=== PATIENT | male | born 1940 | race Caucasian/White ===

== ENCOUNTER → 2018-12-01 | Outpatient (CLI) | payer MEDICARE, OTHER ==
--- NOTE | 2018-12-02 09:14 | XCELERA REPORT ---
[address] [address] Lower Extremity Arterial Evaluation Name: TOAN SYED Age: 78 yrs Gender: Male : 1940 Patient Status: Outpatient Patient Location: Study Date: 12/01/2018 10:24 AM Procedure: A color flow and duplex scan of the lower extremity arteries was performed bilaterally with velocity and waveform anaylsis. Ankle brachial indicies performed. Reason For Study: ULCER Ordering Physician: ADWOA FARLEY Performed By: Tori Nicole Measurements and Calculations Right Left OFFICE EXECUTIVE PSV 113.1 113.6 cm/sec Prox PFA PSV -48.8 -49.9 cm/sec Prox SFA PSV 83.4 93.3 cm/sec Mid SFA PSV -102.0 -89.4 cm/sec Dist SFA PSV -52.2 -94.3 cm/sec Prox Pop A PSV 58.1 83.5 cm/sec Dist LISA PSV 55.5 157.1 cm/sec Prox [place] LIMOUSINE PSV 62.9 cm/sec Mid [employer] LIMOUSINE PSV 23.6 cm/sec Dist [employer] LIMOUSINE PSV 61.5 19.8 cm/sec Darrell Pedis PSV 58.3 125.1 cm/sec Right Side Arterial Evaluation Normal velocity and triphasic waveforms noted from the Common Femoral artery to the infrageniculate vessels Ankle Brachial index 1.37. Left Side Arterial Evaluation Normal velocity and triphasic waveforms noted from the Common Femoral artery to the Femoral, Biphasic from the Popliteal to infrageniculate vessels Velocity normal in Popliteal, and Anterior Tibial, diminished in Posterior Tibial. Ankle Brachial index 1.37. Interpretation Summary No hemodynamically significant lesions in the right lower extremity only, on duplex imaging, at rest. Mild hemodynamically significant lesions in the left lower extremity only, on duplex imaging, at rest. Indication of early significant disease in the Popliteal and Posterior Tibial on the left. NASREEN normal to borderline excessive on left. : ADWOA FARLEY > Jayce Rojo
== END ==
LOC: SP 09:56
PROVIDERS: ATTEND Preventive Medicine Undersea and Hyperbaric Medicine
DX: L97.522 Non-pressure chronic ulcer of other part of left foot with fat layer exposed (principal)
CPT/HCPCS: 93925

== ENCOUNTER → 2018-12-03 | Outpatient (CLI) | payer MEDICARE, OTHER ==
--- NOTE | 2018-12-03 12:41 | RADIOLOGY REPORT (SQ) ---
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 NUMBER OF VIEWS: Three views. TECHNIQUE: AP, lateral and oblique radiographic images acquired of the left foot. LIMITATIONS: None. FINDINGS: MINERALIZATION: Normal. BONES: No acute fracture dislocation. No osteomyelitis. JOINTS: No effusions. SOFT TISSUES: No soft tissue swelling. No foreign body. OTHER: No other significant finding. IMPRESSION: No evidence of osteomyelitis. No acute osseous abnormality. TECHNICAL DOCUMENTATION: JOB ID: [id number] [employer]- All Rights Reserved Reading location - IP/workstation name: [email or web address]
== END ==
LOC: RAD 10:50
PROVIDERS: ATTEND Preventive Medicine Undersea and Hyperbaric Medicine
DX: E11.621 Type 2 diabetes mellitus with foot ulcer (principal); L97.522 Non-pressure chronic ulcer of other part of left foot with fat layer exposed

== ENCOUNTER → 2019-03-15 | Outpatient (CLI) | payer MEDICARE, OTHER ==
--- NOTE | 2019-03-15 16:35 | RADIOLOGY REPORT (SQ) ---
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 NUMBER OF VIEWS: Three views. TECHNIQUE: AP, lateral and oblique radiographic images acquired of the left foot. LIMITATIONS: None. FINDINGS: MINERALIZATION: Normal. 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 No erosive changes. No findings suspicious for osteomyeli tis. JOINTS: No effusions. SOFT TISSUES: No soft tissue swelling. No foreign body. OTHER: Hardware and ankle. IMPRESSION: No changes to suggest osteomyelitis. TECHNICAL DOCUMENTATION: JOB ID: [id number] [employer] All Rights Reserved Reading location - IP/workstation name: [email or web address]
== END ==
LOC: RAD 15:25
PROVIDERS: ATTEND Preventive Medicine Undersea and Hyperbaric Medicine
DX: E11.621 Type 2 diabetes mellitus with foot ulcer (principal); L97.522 Non-pressure chronic ulcer of other part of left foot with fat layer exposed